=== PATIENT | female | born 1975 | race Caucasian/White ===

== ENCOUNTER 2020-09-25 05:59 | Day surgery (SDC) | payer OTHER ==
[~2020-09-25] VITALS: Ht 154.9 cm; Wt 70.3 kg
[~2020-09-25 05:59] MED LIST: FISH306C PO; HAIR1CHW2 PO; IBUP-1022 PO; VITA-158 PO; VITMTA PO
[2020-09-25] MEDS ORDERED: LIDOCAINE 1% MDV 20ML VIAL SQ PRN (06:00)
[2020-09-25] MEDS ORDERED: LR 1,000 ML IV ONE (06:00)
[2020-09-25] MEDS ORDERED: ceFAZolin SOD 1 GM in D5W MINI-BAG PLUS 50 ML IV ONE (06:00)
[2020-09-25] MEDS ORDERED: SCOPOLAMINE 1MG TRANSDERMAL PATCH TOP ONE (07:05)
[2020-09-25] MEDS ORDERED: BUPIVACAINE LIPOSOME/PF 1.3% 20ML VIAL (13.3MG/ML)(EXPAREL)(C9290 PER1MG) As Ordered ONE (07:08)
[2020-09-25] MEDS ORDERED: BACITRACIN PWD 50,000 UNITS VIAL As Ordered ONE (07:09)
[2020-09-25] MEDS ORDERED: dexameTHASONE 4 MG/ML 1ML VIAL (J1100 PER 1MG) As Ordered ONE (07:17)
[2020-09-25] MEDS ORDERED: ONDANSETRON 4MG/2ML VIAL As Ordered ONE (07:17)
[2020-09-25] MEDS ORDERED: fentaNYL 100 MCG/2 ML INJECTION (J3010) As Ordered ONE (07:17)
[2020-09-25] MEDS ORDERED: propofoL 200 MG/20 ML VIAL As Ordered ONE (07:17)
[2020-09-25] MEDS ORDERED: LIDOCAINE 2% 100MG/5ML SDV (FOR ANES.) As Ordered ONE (07:17)
[2020-09-25] MEDS ORDERED: MIDAZOLAM INJ 2MG/2ML VIAL (J2250 PER 1MG) As Ordered ONE (07:18)
[2020-09-25] MEDS ORDERED: PHENYLephrine 500MCG 5ML (100MCG/ML) SYRINGE As Ordered ONE (08:27)
--- NOTE | 2020-09-25 08:43 | POST-OPPD ---
Postoperative Procedure Note Date Of Procedure: Sep 25, 2020 PREOPERATIVE DIAGNOSIS: Right breast implant rupture. POSTOPERATIVE DIAGNOSIS: same FINDINGS: Right implant ruptures. Left implant intact. Wong 420 cc saline. PROCEDURE: Bilateral breast implant removal. SURGEON: Dr Apodaca ANESTHESIA: General SPECIMENS: Right and Left implants, scar, capsule. ESTIMATED BLOOD LOSS: 10 cc REPLACED: none DRAINS: 15 FR round x 2 COMPLICATIONS: none POSTOPERATIVE CONDITION: stable RENÉE APODACA DO Sep 25, 2020 08:43
--- NOTE | 2020-09-25 08:44 | ROOPDOC ---
[facility] Report Of Operation Report of Operation DATE OF PROCEDURE: 09/25/20 PREOPERATIVE DIAGNOSIS: Right breast implant rupture. POSTOPERATIVE DIAGNOSIS: same FINDINGS: Right implant ruptures. Left implant intact. Wong 420 cc saline. PROCEDURE: Bilateral breast implant removal. SURGEON: Dr Apodaca ANESTHESIA: General SPECIMENS: Right and Left implants, scar, capsule. ESTIMATED BLOOD LOSS: 10 cc REPLACED: none DRAINS: 15 FR round x 2 COMPLICATIONS: none POSTOPERATIVE CONDITION: stable Procedure: This is a 45-year-old female status post bilateral breast augmentation 20 years ago. She had spontaneous rupture of her right breast saline implant which happened in March 2020 she is ready to have both implants removed. Risks, benefits and alternatives of the procedure discussed with the patient in detail and she is ready to proceed. The day of surgery informed consent was confirmed and then patient was brought into the operating room, placed in supine position. General anesthesia was induced. She was given preoperative antibiotics. Sequential stockings were placed in the lower calves. She is prepped and draped in the usual sterile fashion. We started our procedure on the right side. Inferior horizontal incision was ou tlined, including the old scar which was excised using 10 blade. Tissue sent to pathology. Sharp dissection with electrocautery carried out until the pectoralis muscle fibers and encountered and small flap created undermining superiorly. Horizontal incision carried out through the subpectoral pocket. Capsule was entered using electrocautery. Deflated implant was identified and removed without difficulties. Partial capsulectomy performed under direct vision with lighted retractor using electrocautery. Capsule sent to pathology. 15 round [place] drain was introduced through the separate stab incision. Wound is irrigated with bacitracin irrigation solution. 6 mL of Exparel was infiltrated in pectoralis muscle. The pocket was closed in layers with interrupted 3-0 Vicryl and 3-0 Monocryl sutures. Also, 3-0 Vicryl Monocryl sutures for the skin. 15 [place] round drain was secured in place with 3-0 Monocryl sutures. Then we turn our attention to the left side. Inferior horizontal incision was outlined, including the old scar which was excised using 10 blade. Tissue sent to pathology. Sharp dissection with electrocautery carried out until the pe ctoralis muscle fibers and encountered and small flap created undermining superiorly. Horizontal incision carried out through the subpectoral pocket. Capsule was entered using electrocautery. Intact saline implant was identified and removed without difficulties. Implant is Allergan 420 style. Partial capsulectomy performed under direct vision with lighted retractor using electrocautery. Capsule sent to pathology. 15 round [place] drain was introduced through the separate stab incision. Wound is irrigated with bacitracin irrigation solution. 6 mL of Exparel was infiltrated in pectoralis muscle. The pocket was closed in layers with interrupted 3-0 Vicryl and 3-0 Monocryl sutures. Also, 3-0 Vicryl Monocryl sutures for the skin. 15 [place] round drain was secured in place with 3-0 Monocryl sutures. Prinio dressing applied to the incision followed by a bulky dressing and a surgical bra. Patient extubated without any difficulties and transferred to recovery room in stable condition. RENÉE APODACA DO Sep 25, 2020 08:44
[2020-09-25] MEDS ORDERED: OXYC1TAB23 PO (08:46)
[2020-09-25] MEDS ORDERED: ONDANSETRON 4MG/2ML VIAL IV PRN (09:00)
[2020-09-25] MEDS ORDERED: METOCLOPRAMIDE INJ 10MG/2ML VIAL (J2765 PER 1) IV PRN (09:00)
[2020-09-25] MEDS ORDERED: LR 1,000 ML IV SCH (09:00)
[2020-09-25] MEDS: fentaNYL 100 MCG/2 ML INJECTION (J3010) IV PRN ×2 (09:05→09:14)
[2020-09-25] MEDS: oxyCODONE 5MG TAB PO PRN ×2 (09:06→10:52)
[2020-09-25] MEDS: HYDROMORPHONE HCL 0.5 MG/ 0.5 ML SYRINGE (J1170 PER 1) IV PRN ×2 (09:20→09:33)
[2020-09-25 11:30] VITALS: BP 137/81
== END 2020-09-25 11:55 | disposition home or self-care (01) ==
LOC: M SDC 05:59
PROVIDERS: ATTEND Plastic Surgery Surgery of the Hand
DX: T85.42XA Displacement of breast prosthesis and implant, initial encounter (principal); F17.218 Nicotine dependence, cigarettes, with other nicotine-induced disorders
CPT/HCPCS: 19328; 81025; 88300; 88302; C9290; J0690; J1100; J1170; J2250; J2370; J2405; J3010